=== PATIENT | female | born 1995 | race Caucasian/White ===

== ENCOUNTER → 2020-08-12 11:03 | Outpatient (BNVA) | payer MEDICAID, SELFPAY | PROVIDERS: Family Provider Nurse Practitioner Family; PCP Nurse Practitioner Family; Visit Provider Emergency Medicine | DX: Z11.59 Encounter for screening for other viral diseases (principal); R09.81 Nasal congestion | CPT/HCPCS: 87635 ==

== ENCOUNTER → 2021-03-24 10:40 | Outpatient (BNVA) | payer BC, MEDICAID, SELFPAY | PROVIDERS: Family Provider Nurse Practitioner Family; PCP Nurse Practitioner Family; Visit Provider Emergency Medicine | DX: J02.9 Acute pharyngitis, unspecified (principal); J06.9 Acute upper respiratory infection, unspecified | CPT/HCPCS: 87071; 87880 ==

== ENCOUNTER → 2021-04-21 09:40 | Outpatient (BNVA) | payer BC, MEDICAID, SELFPAY | PROVIDERS: Family Provider Nurse Practitioner Family; PCP Nurse Practitioner Family; Visit Provider Counselor Professional | DX: F33.2 Major depressive disorder, recurrent severe without psychotic features; F41.1 Generalized anxiety disorder; F41.0 Panic disorder [episodic paroxysmal anxiety] | CPT/HCPCS: 90834 ==

== ENCOUNTER → 2021-05-03 12:52 | Outpatient (BNVA) | payer BC, MEDICAID, SELFPAY | PROVIDERS: Family Provider Nurse Practitioner Family; PCP Nurse Practitioner Family; Visit Provider Counselor Professional | DX: F33.2 Major depressive disorder, recurrent severe without psychotic features (principal); F41.1 Generalized anxiety disorder; F41.0 Panic disorder [episodic paroxysmal anxiety] | CPT/HCPCS: 90834 ==

== ENCOUNTER → 2021-05-30 09:45 | Outpatient (BNVA) | payer BC, MEDICAID, SELFPAY | PROVIDERS: Family Provider Nurse Practitioner Family; PCP Nurse Practitioner Family; Visit Provider Counselor Professional | DX: F33.2 Major depressive disorder, recurrent severe without psychotic features (principal); F41.1 Generalized anxiety disorder; F41.0 Panic disorder [episodic paroxysmal anxiety] | CPT/HCPCS: 90834 ==

== ENCOUNTER → 2021-06-27 12:06 | Outpatient (BNVA) | payer BC, MEDICAID, SELFPAY | PROVIDERS: Family Provider Nurse Practitioner Family; PCP Nurse Practitioner Family; Visit Provider Nurse Practitioner Family | DX: N39.0 Urinary tract infection, site not specified (principal); R39.9 Unspecified symptoms and signs involving the genitourinary system; N92.6 Irregular menstruation, unspecified | CPT/HCPCS: 81000; 81025; 87086 ==

== ENCOUNTER → 2023-03-30 11:38 | Outpatient (BNVA) | payer BC, MEDICAID, SELFPAY | PROVIDERS: Family Provider Nurse Practitioner Family; Visit Provider Nurse Practitioner Family | DX: R30.9 Painful micturition, unspecified (principal); N30.01 Acute cystitis with hematuria | CPT/HCPCS: 81000; 87077; 87086; 87184 ==

== ENCOUNTER → 2023-08-27 12:11 | Outpatient (BNVA) | payer BC, MEDICAID, SELFPAY | PROVIDERS: Family Provider Nurse Practitioner Family; Visit Provider Nurse Practitioner Family | DX: R39.9 Unspecified symptoms and signs involving the genitourinary system (principal); N39.0 Urinary tract infection, site not specified | CPT/HCPCS: 81000; 87077; 87086; 87184 ==

== ENCOUNTER 2023-09-18 19:56 | Emergency (ER) | payer BC, MEDICAID, SELFPAY ==
[2023-09-18 20:02] VITALS: BP 113/77; PULSE 80; RESP 17; TEMP 36.6; O2SAT 99; BMI 22.4
[2023-09-18 20:35] LABS: Add Urine Microscopic? YES; Bilirubin Urine Neg (Negative); Blood Urine 2+ (Negative); Glucose Urine UA Norm (Normal); Ketones Urine Negative (Negative); Leukocyte Esterase Urine Negative (Negative); Nitrate Urine Negative (Negative); Protein Urine Neg (Negative); Specific Gravity, Urine 1.015 (1.005-1.030); Urine Appearance Clear (CLEAR); Urine Color Yellow (Yellow); Urobilinogen Urine 1 mg/dL (Negative); pH Urine 7 (5-7)
[2023-09-18 20:35] LABS: Basophils # 0.1 10^3/uL (0.0-0.1); Basophils % 0.9 %; Eosinophils # 0.1 10^3/uL (0.0-0.8); Eosinophils % 1.5 %; Lymphocytes # 2.9 10^3/uL (0.8-4.8); Lymphocytes % 37.5 %; Mean Corpuscular HGB Conc 33.2 g/dL (30-55); Mean Corpuscular Volume 90.5 fl (85-98); Mean Platelet Volume 10.2 fL (7.4-10.4); Monocytes # 0.8 10^3/uL (0.2-0.9); Monocytes % 10.3 %; Neutrophils # 3.84 10^3/uL (1.8-7.7); Neutrophils % 49.7 %; Nucleated Red Blood Cells % 0 %; Platelet Count 344 10^3/cmm (157-399); Red Cell Distribution Width 11.9 % (12.1-15.1); White Blood Count 7.75 10^3/uL (3.29-11.43)
[2023-09-18 20:36] LABS: Add Urine Culture? No; Bacteria Urine TRACE /hpf; RBC Urine 0-4 /hpf (0-2)
--- NOTE | 2023-09-18 20:43 | ED_ITS ---
HPI - Abdominal Pain General: Chief Complaint: Abdominal Pain Stated Complaint: ABD Pain Time Seen by Provider: 09/18/23 20:39 History of Present Illness: 28-year-old female comes in today with right lower quadrant abdominal pain for 3 to 5 days. Patient has recently been treated for urinary tract infection. Patient has a history of ovarian cyst and tubal . Patient appears in mild pain at rest. Patient appears nontoxic. Patient has a history of C- section. Denies any alcohol or tobacco or drug use. No other surgeries were reported. No routine medications or [id number] medications used. Associated Symptoms: Reports nausea; Denies constipation, diarrhea, fever(s) and vomiting Review of Systems General: Reports: 10 or more systems reviewed and unremarkable except in HPI and below Const: Denies: fever(s) Card: Denies: chest pain Resp: Denies: dyspnea GI: Reports: abdominal pain and nausea; Denies: vomiting, diarrhea or constipation : Reports: pelvic pain; Denies: flank pain, vaginal odor, vaginal bleeding or vaginal discharge Musc: Denies: neck pain or back pain Skin/Breast: Denies: rash PFSH ED PFSH: Medical History PTSD (post-traumatic stress disorder) Family History Mother Breast cancer Diabetes Grandmother Breast cancer Maternal Chronic kidney disease (CKD) maternal Brother Diabetes Denies family history of Ovarian cyst CAD (coronary artery disease) Clotting disorder Hyperlipidemia Anesthesia complication Family history of thyroid problem Bleeding disorder Hypertension Social History Smoking and tobacco/nicotine status: never used tobacco/nicotine Alcohol intake: never Substance/Drug Use: never Female Reproductive History: Spontaneous abortions: No Physical Exam Const: COMMON NORMALS: alert HENMT: COMMON NORMALS: normocephalic HEAD & SCALP: normocephalic Neck/C-Spine: COMMON NORMALS: full ROM Resp: COMMON NORMALS: normal respiratory effort and clear to auscultation bilaterally AUSCULTATION: clear to auscultation bilaterally Cardio: COMMON NORMALS: regular rate and regular rhythm RATE: regular rate RHYTHM: regular rhythm GI: COMMON NORMALS: Soft to palpation PALPATION: Yes Soft to palpation and Yes Tenderness to palpation present (GI) Details: RLQ : COMMON NORMALS: Yes no CVA tenderness BLADDER/KIDNEY EXAM: Yes no CVA tenderness Back/Pelvis: COMMON NORMALS: no CVA tenderness and thoracic and lumbar spine normal to inspection Extremity: COMMON NORMALS: no pedal edema Neuro: SENSORIUM/ORIENTATION: Yes alert Skin: COMMON NORMALS: turgor normal GENERAL SKIN EXAM: turgor normal Course Vital Signs: Vital signs: Vital Signs Temperature 98 F 09/18/23 22:07 Pulse Rate 80 09/18/23 22:07 Respiratory Rate 17 09/18/23 22:07 Blood Pressure 113/77 09/18/23 22:07 Pulse Oximetry 99 09/18/23 22:07 Oxygen Delivery Me thod Room Air 09/18/23 20:02 MDM - Abdominal Pain Medical Decision Making 28-year-old female comes in today for complaints of right lower quadrant abdominal pain. Patient has a history of ovarian cyst, ectopic , urinary tract infection. Patient has had 4 live pregnancies. On exam abdomen soft with tenderness in the right lower quadrant. Bowel sounds are decreased. Vital signs are normal. Differential diagnosis includes ovarian cyst, ovarian torsion, renal calculi, appendicitis, urinary tract infection. CBC and CMP were unremarkable. Urinalysis showed no signs of infection. CT of the abdomen pelvis showed no significant abdominal pelvic findings. Patient did have a recent right ovarian follicle with some associated free fluid. Reviewed exam wi th patient with recommendations for treatment of ovarian cyst follicle rupture. Patient reported understanding and agreed to plan to use acetaminophen and ibuprofen and follow-up with primary care. Patient was stable and discharged home. Lab Data 09/18/23 20:29 09/18/23 20:29 Labs/Radiology: Radiology Impressions Abdomen/Pelvis CT 09/18/23 20:49 IMPRESSION: 1. No significant abdominopelvic findings. 2. Recently ruptured right ovarian follicle with associated free fluid. 3. Other incidental findings as described Laboratory Results WBC 7.75 10^3/uL (3.29-11.43) 09/18/23 20:29 RBC 4.20 10^6/uL (3.85-5.65) 09/18/23 20:29 Hgb 12.60 g/dL (11.27-16.99) 09/18/23 20: Hct 38.0 % (36-47) 09/18/23 20: MCV 90.5 fl (85-98) 09/18/23 20: MCH 30.0 pg (27-33) 09/18/23: MCHC 33.2 g/dL (30-55) 09/18/23 20: RDW 11.9 % (12.1-15.1) L 09/18/23: Plt Count 344 10^3/cmm (157-399) 09/18/23: MPV 10.2 fL (7.4-10.4) 09/18/23 20: Neut % (Auto) 49.7 % 09/18/23: Lymph % (Auto) 37.5 % 09/18/23: [place] % (Auto) 10.3 % 09/18/23: Eos % (Auto) 1.5 % 09/18/23: Baso % (Auto) 0.9 % 09/18/23 Neut # (Auto) 3.84 10^3/uL (1.8-7.7) 09/18/23: Lymph # (Auto) 2.9 10^3/uL (0.8-4.8) 09/18/23: [place] # (Auto) 0.8 10^3/uL (0.2-0.9) 09/18/23: Eos # (Auto) 0.1 10^3/uL (0.0-0.8) 09/18/23 Baso # (Auto) 0.1 10^3/uL (0.0-0.1) 09/18/23: Nucleated RBC % (auto) 0 % 09/18/23: Nucleated RBCs # 0.0 /100WBC 09/18/23 20: Sodium 141 mmol/L (136-145) 09/18/23 20: Potassium 3.3 mmol/L (3.5-5.1) L 09/18/23 20: Chloride 104 mmol/L (98-107) 09/18/23 20: Carbon Dioxide 27 mmol/L (22-29) 09/18/23 20: Anion Gap 13.3 (5-19) 09/18/23 20: BUN 7 mg/dL (6-20) 09/18/23 20: Creatinine 0.5 mg/dL (0.5-0.9) 09/18/23 20: GFR Calculation 144.9 mL/min (90-130) H 09/18/23 20: Glucose 87 mg/dL (65-115) 09/18/23 20: Calculated Osmolality 289 mOsm/kg (285-295) 09/18/23 20: Calcium 9.1 mg/dL (8.5-10.5) 09/18/23 20: Total Bilirubin 0.3 mg/dL (0.15-1.2) 09/18/23 20: AST 16 U/L (0-32) 09/18/23: ALT 14 U/L (0-33) 09/18/23 20: Alkaline Phosphatase 69 U/L (35-105) 09/18/23 20: Total Protein 6.8 g/dL (6.6-8.7) 09/18/23: Albumin 4.3 g/dL (3.5-5.2) 09/18/23 20: Globulin 2.5 g/dL (1.3-4.6) 09/18/23: Lipase 24 U/L (13-60) 09/18/23 20: HCG, Qual Negative (Negative) 09/18/23 20: Urine Color Yellow (Yellow) 09/18/23 20: Urine Appearance Clear (CLEAR) 09/18/23 20: Urine pH 7 (5-7) 09/18/23 20: Ur Specific [place] 1.015 (1.005-1.030) 09/18/23 20: Urine Protein Neg (Negative) 09/18/23 20: Urine Glucose (UA) Norm (Normal) 09/18/23 20: Urine Ketones Negative (Negative) 09/18/23 20: Urine Blood 2+ (Negative) H 09/18/23 20:10 Urine Nitrate Negative (Negative) 09/18/23 20: Urine Bilirubin Neg (Negative) 09/18/23 20: Urine Urobilinogen 1 mg/dL (Negative) H 09/18/23 20: Ur Leukocyte Esterase Negative (Negative) 09/18/23 20:10 Urine RBC 0-4 /hpf (0-2) H 09/18/23 20:10 Urine WBC None /hpf (0-5) 09/18/23 20:10 Ur Squamous Epith Cells 5-10 /hpf (0-5) H 09/18/23 20:10 Amorphous Sediment Not Reportable 09/18/23 20:10 Urine Bacteria Trace /hpf (NONE) 09/18/23 20:10 All radiology interpretation(s) finalized by discharge Discharge Plan Discharge Patient Disposition: Home Clinical Impression: Ovarian cyst rupture Condition: Stable Prescriptions: New ibuprofen 100 mg/5 mL suspension 600 mg PO Q6H PRN (Reason: fever or pain) Qty: 473 1RF No Action nitrofurantoin macrocrystal 100 mg capsule 100 mg PO BID 5 Days Qty: 10 0RF Rx Instructions: must administer with a meal/food Discharge Orders: Discharge ED (Routine); Ordered 09/18/23 Ordered By: Bi Obrien Discharge Diet: Usual diet Discharge Activity: Increase activity as tolerated Patient Instructions: Ruptured Ovarian Cyst (ED) Activity Restrictions/Additional Instructions: Drink plenty water and fluids. Use acetaminophen and/or ibuprofen as needed for pain. Follow-up with primary care or [facility] for further evaluation and treatment. Return to ER for worsening symptoms such as high fever, feeling of passing out, severe pain, or new concerns. Coding Level of Care Code ED Infrastructure Engineer for Gabriel Mckeon
--- NOTE | 2023-09-18 20:49 | CTR_ITS ---
PROCEDURE INFORMATION: Exam: CT Abdomen And Pelvis With Contrast Exam date and time: 09/18/2023 9:07 PM Age: 28 years old Clinical indication: Abdominal pain; Localized; Right lower quadrant (rlq); Patient HX: Recent UTI; Additional info: Rlq pain, UTI, R/O appy, renal calculi, ovarian cyst TECHNIQUE: Imaging protocol: Computed tomography of the abdomen and pelvis with contrast. Radiation optimization: All CT scans at this facility use at least one of these dose optimization techniques: automated exposure control; mA and/or kV adjustment per patient size (includes targeted exams where dose is matched to clinical indication); or iterative reconstruction. Contrast material: OMNI 350; Contrast volume: 100 ml; Contrast route: INTRAVENOUS (IV); REPORTING DATA: Count of CT and Cardiac NM exams in prior 12 months: This patient has received 0 known CTs and 0 known cardiac nuclear medicine studies in the 12 months prior to the current study. COMPARISON: No relevant prior studies available. RADIATION DOSE METRICS: Total DLP (mGy-cm): 357.46 FINDINGS: Lungs: The lung bases are clear. Liver: Normal. No mass. Gallbladder and bile ducts: Normal. No calcified stones. No ductal dilation. Pancreas: Normal. No ductal dilation. Spleen: Normal. No splenomegaly. Adrenal glands: Normal. No mass. Kidneys and ureters: No renal stones or obstruction. The kidneys enhance normally. Stomach and bowel: The small bowel is normal. The terminal ileum is normal. There is scattered stool in the colon without obstructive or inflammatory changes. Appendix: The appendix is normal. Intraperitoneal space: Unremarkable. No free air. No significant fluid collection. Vasculature: Unremarkable. No abdominal aortic aneurysm. Lymph nodes: Unremarkable. No enlarged lymph nodes. Urinary bladder: Unremarkable as visualized. Reproductive: There is a collapsed cyst in the right ovary measuring 2.3 cm with associated small free fluid. The left ovary has a dominant follicle measuring 1.5 cm. The ovary is normal. Bones/joints: Unremarkable. No acute fracture. Soft tissues: Unremarkable. CT/CT abdomen pelvis w con* [id number] IMPRESSION: 1. No significant abdominopelvic findings. 2. Recently ruptured right ovarian follicle with associated free fluid. 3. Other incidental findings as described
[2023-09-18 20:54] LABS: HCG, Serum Qual Negative (Negative)
[2023-09-18 21:01] LABS: Alanine Aminotransferase 14 U/L (0-33); Albumin Level 4.3 g/dL (3.5-5.2); Alkaline Phosphatase 69 U/L (35-105); Anion Gap 13.3 (5-19); Aspartate Amino Transferase 16 U/L (0-32); Blood Urea Nitrogen 7 mg/dL (6-20); Calcium 9.1 mg/dL (8.5-10.5); Carbon Dioxide 27 mmol/L (22-29); Chloride 104 mmol/L (98-107); Globulin 2.5 g/dL (1.3-4.6); Glomerular Filtration Rate 144.9 mL/min (90-130); Glucose 87 mg/dL (65-115); Lipase 24 U/L (13-60); Osmolality Calculated 289 mOsm/kg (285-295); Potassium 3.3 mmol/L (3.5-5.1); Sodium 141 mmol/L (136-145); Total Bilirubin 0.3 mg/dL (0.15-1.2); Total Protein 6.8 g/dL (6.6-8.7)
[2023-09-18] MEDS: iohexol 350 mg/mL 500 mL Btl (per mL) IV (21:12)
[2023-09-18] MEDS: ibuprofen Oral Susp 100 mg/5mL UDC 600 MG PO (22:01)
[2023-09-18 22:07] VITALS: BP 113/77; PULSE 80; RESP 17; TEMP 36.6; O2SAT 99
== END 2023-09-18 22:08 | disposition home or self-care (01) ==
PROVIDERS: Emergency Medicine; Emergency Provider Nurse Practitioner Family
DX: N83.201 Unspecified ovarian cyst, right side (principal)
CPT/HCPCS: 36415; 74177; 80053; 81001; 83690; 84703; 85025; 99285; Q9967

== ENCOUNTER 2024-01-20 19:28 | Emergency (ER) | payer BC, MEDICAID, SELFPAY ==
[2024-01-20 19:31] VITALS: BP 109/73; PULSE 75; RESP 16; TEMP 36.7; O2SAT 100
--- NOTE | 2024-01-20 19:39 | ED_ITS ---
Documented by User: [email or web address] Ly 01/20/24 20:44 HPI - Abdominal Pain 2 General: Chief Complaint: Abdominal Pain Stated Complaint: Right side pain Time Seen by Provider: 01/20/24 19:31 Source: patient Mode of arrival: ambulatory Limitations: no limitations History of Present Illness: Patient is a 29-year-old female who presents to the emergency department complaining of right lower abdominal pain onset 3 days. Patient states the pain is similar to a previous UTI and ruptured ovarian cyst, however she states she still has her appendix. She notes associated dysuria, foul urinary odor, and dyspareunia. She denies any nausea or vomiting, fevers, back or flank pain, or any other symptoms. She notes that she was treated 1 month ago for her last UTI with Macrobid, and has been otherwise okay up until 3 days ago. She denies possibility of . MD elicited complaint: abdominal pain Pertinent past history: past UTI Onset (ago): day(s) Pain Consistency: intermittent Location: RLQ Severity: mild Quality: cramping Associated Symptoms: Reports dysuria; Denies bloating, change in stool character, chills, constipation, diarrhea, fever(s), hematochezia, nausea and vomiting Review of Systems 2 General: Reports: 10 or more systems reviewed and unremarkable except in HPI and below Const: Denies: fever(s), chills, change in appetite, change in weight or diaphoresis ENMT: Denies: throat pain or hoarseness Card: Denies: chest pain, palpitations or lightheadedness Resp: Denies: dyspnea, productive cough or wheezing GI: Reports: abdominal pain; Denies: nausea, vomiting, diarrhea, constipation, bloating, change in stool character or hematochezia : Reports: dysuria, dyspareunia and other (Foul urinary odor); Denies: flank pain, difficulty voiding, urinary frequency or urinary urgency Musc: Denies: neck pain or back pain Skin/Breast: Denies: rash or new lesions Neuro: Denies: headache(s) or dizziness PFSH ED 2 PFSH: Medical History PTSD (post-traumatic stress disorder) Family History Mother Breast cancer Diabetes Grandmother Breast cancer Maternal Chronic kidney disease (CKD) maternal Brother Diabetes Denies family history of Ovarian cyst CAD (coronary artery disease) Clotting disorder Hyperlipidemia Anesthesia complication Family history of thyroid problem Bleeding disorder Hypertension Female Reproductive History: Spontaneous abortions: No Physical Exam 2 Const: COMMON NORMALS: no acute distress, average body habitus, patient oriented x3, no limitations, healthy appearing, alert and well nourished G ENERAL APPEARANCE: cooperative and comfortable ORIENTATION/CONSCIOUSNESS: Yes awake HENMT: COMMON NORMALS: normocephalic, atraumatic, hearing grossly normal bilaterally, external ears normal, Normal external nose present, Normal nasal mucous membranes and turbinates present and moist oral mucous membranes HEAD & SCALP: normocephalic and atraumatic NOSE: Normal external nose present and Normal nasal mucous membranes and turbinates present EXTERNAL EAR: Yes external ears normal Eye: COMMON NORMALS: Equal, round and reactive pupils present, EOMs intact bilaterally, conjunctivae normal and normal visual fortune by confrontation C ONJUNCTIVA: Yes conjunctivae normal PUPIL: Yes Equal, round and reactive pupils present Neck/C-Spine: COMMON NORMALS: full ROM, supple, no meningeal signs and no JVD Resp: COMMON NORMALS: normal respiratory effort, No retractions, No use of accessory muscles and clear to auscultation bilaterally AUSCULTATION: clear to auscultation bilaterally, no crackles, no rales, no rhonchi and no wheezes Cardio: COMMON NORMALS: no JVD, regular rate, regular rhythm, S1 normal heart sound present, S2 normal heart sound present, No gallops present (Cardio), No clicks present (Cardio), No murmurs present (Cardio), No rub (Cardio) and Peripheral pulses 2+ throughout RATE: regular rate RHYTHM: regular rhythm HEART SOUNDS: S1 normal heart sound present and S2 normal heart sound present PERIPHERAL PULSES: Peripheral pulses 2+ throughout GI: COMMON NORMALS: Normal to inspection, nondistended, normoactive bowel sounds present, Soft to palpation, non-tender, No hepatosplenomegaly present and no masses INSPECTION: Yes normal to inspection AUSCULTATION: Yes normoactive bowel sounds PALPATION: Yes Soft to palpation, No Guarding due to palpation present (GI), No Rigid due to palpation and Yes No hepatosplenomegaly present RECTAL EXAM: deferred OTHER: Negative heel strike, negative Rovsing's, negative McBurney's point tenderness, negative psoas sign : COMMON NORMALS: Yes no CVA tenderness BLADDER/KIDNEY EXAM: Yes no CVA tenderness Back/Pelvis: COMMON NORMALS: no CVA tenderness Extremity: COMMON NORMALS: normal to inspection and full ROM Neuro: COMMON NORMALS: patient oriented x3, moves all extremities, no focal motor deficits and no sensory deficits noted SENSORIUM/ORIENTATION: Yes alert MENINGEAL SIGNS: Yes no meningeal signs Psych: COMMON NORMALS: mental status grossly normal, cooperative and speech normal SPEECH: Yes normal speech Skin: COMMON NORMALS: no rashes or lesions noted GENERAL SKIN EXAM: no rashes or lesions noted Course 2 Vital Signs: Vital signs: Vital Signs Temperature 98.1 F 01/20/24 19:31 Pulse Rate 86 01/20/24 21:05 Respiratory Rate 18 01/20/24 21:05 Blood Pressure 108/75 01/20/24 21:05 Pulse Oximetry 98 01/20/24 21:05 Oxygen Delivery Me thod Room Air 01/20/24 19:31 MDM - Abdominal Pain Medical Decision Making Patient seen and evaluated in the emergency department for 3 days of right lower abdominal pain associated with dysuria, and foul urine odor. Patient stated to me that her pain feels similar to a ruptured ovarian cyst, but also feels similar to symptoms she had with her UTI approximately 1 month ago for which she was treated with Macrobid. Vitals normal on arrival including afebrile. Examination overall unremarkable, with no McBurney's point tenderness, Rovsing's, heel strike, or psoas sign. My suspicion for an acute appendicitis is very low due to patient's unremarkable lab results, UA evidence of urinary tract infection, and normal vitals. I do not feel that it is necessary at this time to scan the patient, however I informed her of reasons to return in which a CT would be indicated. Also due to her recurrent urinary tract symptoms, as well as her reported foul odor and dyspareunia, her urine will be cultured for STDs. She stated to me that she has had the same partner for multiple years and that it is very unlikely that this would be positive. I will start the patient on Bactrim and informed her to follow-up with her primary care provider. Return precautions given. Patient agrees with this plan. Lab Data I reviewed the patient's lab results. 01/20/24 19:45 01/20/24 19:45 Labs/Radiology: Laboratory Results WBC 7.61 10^3/uL (3.29-11.43) 01/20/24 19:45 RBC 4.51 10^6/uL (3.85-5.65) 01/20/24 19:45 Hgb 13.40 g/dL (11.27-16.99) 01/20/24 19:45 Hct 40.3 % (36-47) 01/20/24 19:45 MCV 89.4 fl (85-98) 01/20/24 19:45 MCH 29.7 pg (27-33) 01/20/24 19:45 MCHC 33.3 g/dL (30-55) 01/20/24 19:45 RDW 12.7 % (12.1-15.1) 01/20/24 19:45 Plt Count 359 10^3/cmm (157-399) 01/20/24 19:45 MPV 10.4 fL (7.4-10.4) 01/20/24 19:45 Neut % (Auto) 53.6 % 01/20/24 19:45 Lymph % (Auto) 33.9 % 01/20/24 19:45 [place] % (Auto) 9.1 % 01/20/24 19:45 Eos % (Auto) 2.5 % 01/20/24 19:45 Baso % (Auto) 0.8 % 01/20/24 19:45 Neut # (Auto) 4.08 10^3/uL (1.8-7.7) 01/20/24 19:45 Lymph # (Auto) 2.6 10^3/uL (0.8-4.8) 01/20/24 19:45 [place] # (Auto) 0.7 10^3/uL (0.2-0.9) 01/20/24 19:45 Eos # (Auto) 0.2 10^3/uL (0.0-0.8) 01/20/24 19:45 Baso # (Auto) 0.1 10^3/uL (0.0-0.1) 01/20/24 19:45 Nucleated RBC % (auto) 0 % 01/20/24 19:45 Nucleated RBCs # 0.0 /100WBC 01/20/24 19:45 Sodium 136 mmol/L (136-145) 01/20/24 19:45 Potassium 3.5 mmol/L (3.5-5.1) 01/20/24 19:45 Chloride 99 mmol/L (98-107) 01/20/24 19:45 Carbon Dioxide 28 mmol/L (22-29) 01/20/24 19:45 Anion Gap 12.5 (5-19) 01/20/24 19:45 BUN 11 mg/dL (6-20) 01/20/24 19:45 Creatinine 0.6 mg/dL (0.5-0.9) 01/20/24 19:45 GFR Calculation 116.6 mL/min (90-130) 01/20/24 19:45 Glucose 89 mg/dL (65-115) 01/20/24 19:45 Calculated Osmolality 281 mOsm/kg (285-295) L 01/20/24 19:45 Calcium 9.1 mg/dL (8.5-10.5) 01/20/24 19:45 Total Bilirubin 0.3 mg/dL (0.15-1.2) 01/20/24 19:45 AST 22 U/L (0-32) 01/20/24 19:45 ALT 15 U/L (0-33) 01/20/24 19:45 Alkaline Phosphatase 94 U/L (35-105) 01/20/24 19:45 Total Protein 7.5 g/dL (6.6-8.7) 01/20/24 19:45 Albumin 4.6 g/dL (3.5-5.2) 01/20/24 19:45 Globulin 2.9 g/dL (1.3-4.6) 01/20/24 19:45 Lipase 30 U/L (13-60) 01/20/24 19:45 HCG, Qual Negative (Negative) 01/20/24 19:40 Urine Color Yellow (Yellow) 01/20/24 19:40 Urine Appearance Sl hazy (CLEAR) A 01/20/24 19:40 Urine pH 7 (5-7) 01/20/24 19:40 Ur Specific [place] 1.015 (1.005-1.030) 01/20/24 19:40 Urine Protein Neg (Negative) 01/20/24 19:40 Urine Glucose (UA) Norm (Normal) 01/20/24 19:40 Urine Ketones Negative (Negative) 01/20/24 19:40 Urine Blood 2+ (Negative) H 01/20/24 19:40 Urine Nitrate Positive (Negative) H 01/20/24 19:40 Urine Bilirubin Neg (Negative) 01/20/24 19:40 Urine Urobilinogen Neg mg/dL (Negative) 01/20/24 19:40 Ur Leukocyte Esterase Negative (Negative) 01/20/24 19:40 Urine RBC 0-4 /hpf (0-2) H 01/20/24 19:40 Urine WBC 0-4 /hpf (0-5) H 01/20/24 19:40 Ur Squamous Epith Cells None /hpf (0-5) 01/20/24 19:40 Amorphous Sediment Not Reportable 01/20/24 19:40 Urine Bacteria 4+ /hpf (NONE) H 01/20/24 19:40 No radiology studies performed this visit Discharge Plan Discharge Patient Disposition: Home Clinical Impression: Urinary tract infection Qualifiers: Urinary tract infection type: acute cystitis Hematuria presence: without hematuria Qualified Code(s): N30.00 - Acute cystitis without hematuria Condition: Stable Prescriptions: New Bactrim DS 800-160 mg tablet 1 tab PO DAILY 7 Days Qty: 7 0RF Discharge Orders: Discharge ED (Routine); Ordered 01/20/24 Ordered By: Niles Boston Discharge Diet: Usual diet Discharge Activity: Increase activity as tolerated Patient Instructions: Urinary Tract Infection in Women (ED) Activity Restrictions/Additional Instructions: Bactrim as prescribed. Plenty of fluids. Await results of urine culture. Follow-up with your primary care provider. Return with any new or worsening symptoms. Coding Level of Care Code ED Associate Professor Of Engineering for [employer] Documented by User: Biju Mccabe DO 01/21/24 05:50 HPI - Abdominal Pain 2 General: Chief Complaint: Abdominal Pain Stated Complaint: Right side pain Time Seen by Provider: 01/20/24 19:31 [facility] ED 2 PFSH: Medical History PTSD (post-traumatic stress disorder) Family History Mother Breast cancer Diabetes Grandmother Breast cancer Maternal Chronic kidney disease (CKD) maternal Brother Diabetes Denies family history of Ovarian cyst CAD (coronary artery disease) Clotting disorder Hyperlipidemia Anesthesia complication Family history of thyroid problem Bleeding disorder Hypertension Course 2 Vital Signs: Vital signs: Vital Signs Temperature 98.1 F 01/20/24 19:31 Pulse Rate 86 01/20/24 21:05 Respiratory Rate 18 01/20/24 21:05 Blood Pressure 108/75 01/20/24 21:05 Pulse Oximetry 98 01/20/24 21:05 Oxygen Delivery Me thod Room Air 01/20/24 19:31 MDM - Abdominal Pain Medical Decision Making Patient seen and evaluated in the emergency department for 3 days of right lower abdominal pain associated with dysuria, and foul urine odor. Patient stated to me that her pain feels similar to a ruptured ovarian cyst, but also feels similar to symptoms she had with her UTI approximately 1 month ago for which she was treated with Macrobid. Vitals normal on arrival including afebrile. Examination overall unremarkable, with no McBurney's point tenderness, Rovsing's, heel strike, or psoas sign. My suspicion for an acute appendicitis is very low due to patient's unremarkable lab results, UA evidence of urinary tract infection, and normal vitals. I do not feel that it is necessary at this time to scan the patient, however I informed her of reasons to return in which a CT would be indicated. Also due to her recurrent urinary tract symptoms, as well as her reported foul odor and dyspareunia, her urine will be cultured for STDs. She stated to me that she has had the same partner for multiple years and that it is very unlikely that this would be positive. I will start the patient on Bactrim and informed her to follow-up with her primary care provider. Return precautions given. Patient agrees with this plan. Chart reviewed Lab Data 01/20/24 19:45 01/20/24 19:45 Labs/Radiology: Laboratory Results WBC 7.61 10^3/uL (3.29-11.43) 01/20/24 19:45 RBC 4.51 10^6/uL (3.85-5.65) 01/20/24 19:45 Hgb 13.40 g/dL (11.27-16.99) 01/20/24 19:45 Hct 40.3 % (36-47) 01/20/24 19:45 MCV 89.4 fl (85-98) 01/20/24 19:45 MCH 29.7 pg (27-33) 01/20/24 19:45 MCHC 33.3 g/dL (30-55) 01/20/24 19:45 RDW 12.7 % (12.1-15.1) 01/20/24 19:45 Plt Count 359 10^3/cmm (157-399) 01/20/24 19:45 MPV 10.4 fL (7.4-10.4) 01/20/24 19:45 Neut % (Auto) 53.6 % 01/20/24 19:45 Lymph % (Auto) 33.9 % 01/20/24 19:45 [place] % (Auto) 9.1 % 01/20/24 19:45 Eos % (Auto) 2.5 % 01/20/24 19:45 Baso % (Auto) 0.8 % 01/20/24 19:45 Neut # (Auto) 4.08 10^3/uL (1.8-7.7) 01/20/24 19:45 Lymph # (Auto) 2.6 10^3/uL (0.8-4.8) 01/20/24 19:45 [place] # (Auto) 0.7 10^3/uL (0.2-0.9) 01/20/24 19:45 Eos # (Auto) 0.2 10^3/uL (0.0-0.8) 01/20/24 19:45 Baso # (Auto) 0.1 10^3/uL (0.0-0.1) 01/20/24 19:45 Nucleated RBC % (auto) 0 % 01/20/24 19:45 Nucleated RBCs # 0.0 /100WBC 01/20/24 19:45 Sodium 136 mmol/L (136-145) 01/20/24 19:45 Potassium 3.5 mmol/L (3.5-5.1) 01/20/24 19:45 Chloride 99 mmol/L (98-107) 01/20/24 19:45 Carbon Dioxide 28 mmol/L (22-29) 01/20/24 19:45 Anion Gap 12.5 (5-19) 01/20/24 19:45 BUN 11 mg/dL (6-20) 01/20/24 19:45 Creatinine 0.6 mg/dL (0.5-0.9) 01/20/24 19:45 GFR Calculation 116.6 mL/min (90-130) 01/20/24 19:45 Glucose 89 mg/dL (65-115) 01/20/24 19:45 Calculated Osmolality 281 mOsm/kg (285-295) L 01/20/24 19:45 Calcium 9.1 mg/dL (8.5-10.5) 01/20/24 19:45 Total Bilirubin 0.3 mg/dL (0.15-1.2) 01/20/24 19:45 AST 22 U/L (0-32) 01/20/24 19:45 ALT 15 U/L (0-33) 01/20/24 19:45 Alkaline Phosphatase 94 U/L (35-105) 01/20/24 19:45 Total Protein 7.5 g/dL (6.6-8.7) 01/20/24 19:45 Albumin 4.6 g/dL (3.5-5.2) 01/20/24 19:45 Globulin 2.9 g/dL (1.3-4.6) 01/20/24 19:45 Lipase 30 U/L (13-60) 01/20/24 19:45 HCG, Qual Negative (Negative) 01/20/24 19:40 Urine Color Yellow (Yellow) 01/20/24 19:40 Urine Appearance Sl hazy (CLEAR) A 01/20/24 19:40 Urine pH 7 (5-7) 01/20/24 19:40 Ur Specific [place] 1.015 (1.005-1.030) 01/20/24 19:40 Urine Protein Neg (Negative) 01/20/24 19:40 Urine Glucose (UA) Norm (Normal) 01/20/24 19:40 Urine Ketones Negative (Negative) 01/20/24 19:40 Urine Blood 2+ (Negative) H 01/20/24 19:40 Urine Nitrate Positive (Negative) H 01/20/24 19:40 Urine Bilirubin Neg (Negative) 01/20/24 19:40 Urine Urobilinogen Neg mg/dL (Negative) 01/20/24 19:40 Ur Leukocyte Esterase Negative (Negative) 01/20/24 19:40 Urine RBC 0-4 /hpf (0-2) H 01/20/24 19:40 Urine WBC 0-4 /hpf (0-5) H 01/20/24 19:40 Ur Squamous Epith Cells None /hpf (0-5) 01/20/24 19:40 Amorphous Sediment Not Reportable 01/20/24 19:40 Urine Bacteria 4+ /hpf (NONE) H 01/20/24 19:40 Discharge Plan Discharge Patient Disposition: Home Clinical Impression: Urinary tract infection Qualifiers: Urinary tract infection type: acute cystitis Hematuria presence: without hematuria Qualified Code(s): N30.00 - Acute cystitis without hematuria Condition: Stable Prescriptions: New Bactrim DS 800-160 mg tablet 1 tab PO DAILY 7 Days Qty: 7 0RF Discharge Orders: Discharge ED (Routine); Ordered 01/20/24 Ordered By: Niles Boston Discharge Diet: Usual diet Discharge Activity: Increase activity as tolerated Patient Instructions: Urinary Tract Infection in Women (ED) Activity Restrictions/Additional Instructions: Bactrim as prescribed. Plenty of fluids. Await results of urine culture. Follow-up with your primary care provider. Return with any new or worsening symptoms. 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
[2024-01-20 19:59] LABS: Basophils # 0.1 10^3/uL (0.0-0.1); Basophils % 0.8 %; Eosinophils # 0.2 10^3/uL (0.0-0.8); Eosinophils % 2.5 %; Hematocrit 40.3 % (36-47); Lymphocytes # 2.6 10^3/uL (0.8-4.8); Lymphocytes % 33.9 %; Mean Corpuscular HGB Conc 33.3 g/dL (30-55); Mean Corpuscular Hemoglobin 29.7 pg (27-33); Mean Corpuscular Volume 89.4 fl (85-98); Mean Platelet Volume 10.4 fL (7.4-10.4); Monocytes # 0.7 10^3/uL (0.2-0.9); Monocytes % 9.1 %; Neutrophils # 4.08 10^3/uL (1.8-7.7); Neutrophils % 53.6 %; Nucleated Red Blood Cells % 0 %; Platelet Count 359 10^3/cmm (157-399); Red Blood Count 4.51 10^6/uL (3.85-5.65); Red Cell Distribution Width 12.7 % (12.1-15.1); White Blood Count 7.61 10^3/uL (3.29-11.43)
[2024-01-20 20:10] LABS: HCG Qualitative Urine. Negative (Negative)
[2024-01-20 20:14] LABS: Alanine Aminotransferase 15 U/L (0-33); Albumin Level 4.6 g/dL (3.5-5.2); Alkaline Phosphatase 94 U/L (35-105); Anion Gap 12.5 (5-19); Aspartate Amino Transferase 22 U/L (0-32); Blood Urea Nitrogen 11 mg/dL (6-20); Calcium 9.1 mg/dL (8.5-10.5); Carbon Dioxide 28 mmol/L (22-29); Chloride 99 mmol/L (98-107); Creatinine Clr Calc Pharmacy 102.5207; Globulin 2.9 g/dL (1.3-4.6); Glomerular Filtration Rate 116.6 mL/min (90-130); Glucose 89 mg/dL (65-115); Lipase 30 U/L (13-60); Osmolality Calculated 281 mOsm/kg (285-295); Potassium 3.5 mmol/L (3.5-5.1); Sodium 136 mmol/L (136-145); Total Bilirubin 0.3 mg/dL (0.15-1.2); Total Protein 7.5 g/dL (6.6-8.7)
[2024-01-20 20:18] LABS: Add Urine Microscopic? YES; Bilirubin Urine Neg (Negative); Blood Urine 2+ (Negative); Glucose Urine UA Norm (Normal); Ketones Urine Negative (Negative); Leukocyte Esterase Urine Negative (Negative); Nitrate Urine Positive (Negative); Protein Urine Neg (Negative); Specific Gravity, Urine 1.015 (1.005-1.030); Urine Appearance SL Hazy (CLEAR); Urine Color Yellow (Yellow); Urobilinogen Urine Neg (Negative); pH Urine 7 (5-7)
[2024-01-20 20:19] LABS: Add Urine Culture? Yes; Bacteria Urine 4+ /hpf; RBC Urine 0-4 /hpf (0-2); WBC Urine 0-4 /hpf (0-5)
[2024-01-20] MEDS: sulfamethoxazole-trimeth DS 160-800 mg Tablet 1 TAB PO (20:36)
[2024-01-20 20:37] VITALS: BP 110/83; PULSE 96; RESP 16; O2SAT 99
[2024-01-20 21:05] VITALS: BP 108/75; PULSE 86; RESP 18; O2SAT 98
[2024-01-22 09:44] LABS: Chlamydia Trachomatis RNA TMA NOT DETECTED (NOT DETECTED); Neisseria Gonorrhoeae RNA, TMA NOT DETECTED (NOT DETECTED)
== END 2024-01-20 21:07 | disposition home or self-care (01) ==
PROVIDERS: Emergency Provider Physician Assistant
DX: N30.00 Acute cystitis without hematuria (principal)
CPT/HCPCS: 80053; 81001; 81025; 83690; 85025; 87077; 87086; 87186; 87491; 87591; 99283

== ENCOUNTER → 2024-02-24 16:11 | Outpatient (BNVA) | payer BC, MEDICAID, SELFPAY | PROVIDERS: Visit Provider Nurse Practitioner Family | DX: R30.0 Dysuria (principal) | CPT/HCPCS: 81000; 87077; 87086; 87184 ==